=== PATIENT | female | born 1980 | race Caucasian/White ===

== ENCOUNTER 2016-12-10 18:43 | Emergency (ER) | payer OTHER | END 2016-12-10 20:44 | disposition home or self-care (01) | LOC: FER 18:43 | DX: J10.1 Influenza due to other identified influenza virus with other respiratory manifestations (principal); E03.9 Hypothyroidism, unspecified; Z79.51 Long term (current) use of inhaled steroids; Z79.899 Other long term (current) drug therapy | CPT/HCPCS: 87804; 87899; 99283 ==